=== PATIENT | female | born 1940 | race Caucasian/White ===

== ENCOUNTER → 2016-09-15 | Outpatient (CLI) | payer MEDICARE, OTHER ==
[2016-09-15 12:03] LABS: MEAN CORPUSCULAR HEMOGLOBIN 29.2 PG (26.0-34.0); MEAN CORPUSCULAR HGB CONC 34.5 g/dL (31.0-37.0); MEAN CORPUSCULAR VOLUME 85 FL (80-100); MEAN PLATELET VOLUME 9.7 FL (6.0-9.5); PLATELET COUNT 325 10^3uL (150-450); WHITE BLOOD COUNT 5.53 10^3uL (4.0-11.0)
[2016-09-15 12:12] LABS: BAND NEUTROPHILS % 0 % (0-6); EOSINOPHILS % 5 % (0-4); LYMPHOCYTES # 1.9 #; MONOCYTES # 0.5 #; MONOCYTES % 9 % (3-11); RBC MORPH NORMAL (NORMAL); SEGMENTED NEUTROPHILS % 51 % (51-67); TOTAL CELLS COUNTED 100
[2016-09-15 12:48] LABS: ANION GAP 13.6 MEQ/L (3-15); CALCULATED IONIZED CALCIUM 3.9 mg/dL (3.8-4.6); PHOSPHORUS 3.8 mg/dL (2.4-4.9); TOTAL PROTEIN 7.7 g/dL (6.4-8.5)
[2016-09-17 23:12] LABS: CA 27.29 C 12.3 U/mL (<=38.0)
== END ==
LOC: LAB 11:45
PROVIDERS: ATTEND Internal Medicine Hematology & Oncology
DX: C50.111 Malignant neoplasm of central portion of right female breast (principal); C50.411 Malignant neoplasm of upper-outer quadrant of right female breast
CPT/HCPCS: 36415; 80053; 82378; 83615; 83735; 84100; 85007; 85027; 86300

== ENCOUNTER 2016-09-17 05:53 | Emergency (ER) | payer MEDICARE, OTHER ==
[~2016-09-17] VITALS: Ht 167.6 cm; Wt 73.3 kg
[2016-09-17 06:50] VITALS: BP 134/71
== END 2016-09-17 06:46 | disposition home or self-care (01) ==
LOC: ED 05:54
DX: R25.1 Tremor, unspecified (principal); R11.2 Nausea with vomiting, unspecified; C50.919 Malignant neoplasm of unspecified site of unspecified female breast; Z79.899 Other long term (current) drug therapy
CPT/HCPCS: 99281; 99283

== ENCOUNTER → 2016-12-08 | Outpatient (CLI) | payer MEDICARE, OTHER ==
[~2016-12-08] MED LIST: ASPI-586 PO; CA C1TAB78 PO; DENO120V SQ; FULV250D2 IM; LEVO50TA6 PO; LYSI500T13 PO; MULT-642 PO
[2016-12-08 09:50] LABS: MEAN CORPUSCULAR HEMOGLOBIN 28.9 PG (26.0-34.0); MEAN CORPUSCULAR HGB CONC 32.7 g/dL (31.0-37.0); MEAN CORPUSCULAR VOLUME 88 FL (80-100); MEAN PLATELET VOLUME 9.7 FL (6.0-9.5); PLATELET COUNT 294 10^3uL (150-450); WHITE BLOOD COUNT 4.45 10^3uL (4.0-11.0)
[2016-12-08 10:15] LABS: BAND NEUTROPHILS % 0 % (0-6); EOSINOPHILS % 6 % (0-4); LYMPHOCYTES # 1.1 #; MONOCYTES # 0.1 #; MONOCYTES % 3 % (3-11); RBC MORPH NORMAL (NORMAL); SEGMENTED NEUTROPHILS % 65 % (51-67); TOTAL CELLS COUNTED 100
[2016-12-08 10:16] LABS: ANION GAP 15.9 MEQ/L (3-15); MAGNESIUM* 1.7 mg/dL (1.6-2.3); PHOSPHORUS 4.3 mg/dL (2.4-4.9); TOTAL PROTEIN 7.6 g/dL (6.4-8.5)
[2016-12-11 00:53] LABS: CA 27.29 C 17.1 U/mL (<=38.0)
== END ==
LOC: LAB 09:32
PROVIDERS: ATTEND Internal Medicine Hematology & Oncology
DX: C50.111 Malignant neoplasm of central portion of right female breast (principal)
CPT/HCPCS: 36415; 80053; 82378; 83615; 83735; 84100; 85007; 85027; 86300

== ENCOUNTER → 2016-12-10 | Outpatient (CLI) | payer MEDICARE, OTHER ==
--- NOTE | 2016-12-10 09:56 | Diagnostic Imaging Report ---
PROCEDURE: CT chest pelvis with and abdomen with and without contrast. TECHNIQUE: Multiple contiguous axial images were obtained through the chest, abdomen and pelvis after uneventful bolus administration of intravenous contrast. Precontrast acquisitions were acquired through the abdomen. DATE: December 10, 2016. COMPARISON: CT chest abdomen pelvis January 03, 2016. INDICATION: 76-year-old female, history of breast cancer. FINDINGS: There are peripheral areas of reticular nodularity in the right upper and middle lobe which are unchanged in overall appearance compared to January 03, 2016. There is somewhat of a nodular peripheral area that is unchanged since comparison exam as well measuring up to roughly 7 mm in size on axial image 27. There is no identified new or enlarging pulmonary nodule. There are predominantly linear opacities in the lower lobes that likely relate to atelectasis. There is mild pleural-parenchymal scarring in the right lung apex. There is no additional focal airspace consolidation. The previously noted nodule along the left-sided fissure is significantly less prominent since comparison exam. There is no pneumothorax. There is no pleural effusion. The central airways are patent. There is no identified central pulmonary embolus. The main pulmonary artery is normal in caliber. The heart is not enlarged. There is no pericardial effusion. There is a right hilar lymph node on axial image 25 measuring 8 mm in short axis which is unchanged since comparison exam. There is no identified hilar, mediastinal, or axillary lymph node which meets specific CT size criteria for adenopathy or is new or enlarged since the comparison exam. The liver is normal in size and contour. There is no identified liver lesion. The main, right, and left portal veins are patent. There is mild intrahepatic bile duct dilation. The gallbladder is unremarkable in appearance without CT apparent gallstones. There is no dilation of the common bile duct. The main pancreatic duct is not identified is abnormally dilated. The pancreatic parenchyma is grossly unremarkable. The spleen is normal in size. The adrenal glands are unremarkable. There are benign left parapelvic cysts. Additional evaluation of the renal parenchyma is unremarkable. The urinary collecting systems are not distended. There is no identified renal or ureteral stone. The urinary bladder is unremarkable in appearance. A small calcified lesions in the uterus as well as noncalcified uterine lesions most likely relating to multiple uterine leiomyomas. There is a moderate volume colonic stool. The intestinal tract is not distended. There is no free intraperitoneal air. There is no drainable fluid collection. There is no free pelvic fluid. There are atherosclerotic calcifications. There is no identified abnormally enlarged lymph node within the abdomen or pelvis which meets CT size criteria for adenopathy. There is chondrocalcinosis at the pubic symphysis. There are disc and facet degenerative changes of the lower lumbar spine. There is a sclerotic lesion involving the right proximal humerus involving the proximal humeral epiphysis extending at least to the level of the proximal metadiaphysis. The lesion is not entirely included in the [id number] and measures at least 3.7 cm in proximal to distal extent. There is some lesion appears grossly unchanged within its visualized portions comparing to January 03, 2016. The appearance is most consistent with a bone metastasis. No additional bone lesion is identified. 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 IMPRESSION: CT CHEST, ABDOMEN AND PELVIS. 1. Stable peripheral reticular nodularity in the right upper lobe and right middle lobe since December 2015. No new or enlarging pulmonary nodule. 2. Redemonstrated metastatic lesion involving the right proximal humerus which is not entirely visualized although within its visualized portions is very similar to January 03, 2016. No additional bone metastasis identified. 3. No evidence of metastatic disease within the abdomen or pelvis. 4. Multiple intrauterine leiomyomas. Dictated by: Dictated on workstation # [id number]
== END ==
LOC: RAD 07:57
PROVIDERS: ATTEND Internal Medicine Hematology & Oncology
DX: C50.111 Malignant neoplasm of central portion of right female breast (principal)
CPT/HCPCS: 71260; 74178; Q9967

== ENCOUNTER 2017-01-16 09:00 | Outpatient (RCR) | payer MEDICARE, OTHER ==
--- NOTE | 2017-01-06 15:07 | PT/OT/ST INITIAL EVALUATION ---
Department of Health and Human Services Form Approved [facility] Care Financing Administration OMB No. [id number] PLAN OF CARE/ASSESSMENT FOR OUTPATIENT REHABILITATION (Complete for Initial Claims Only) 1. PATIENT'S NAME Genevieve Nevarez 2. ACC # [id number] [facility]. [id number] 4. PROVIDER NO. [id number] 5. TYPE: PT 6. PRIOR HOSPITALIZATION NA 7. PRIMARY DX Right upper extremity lymphedema. 8. SECONDARY DX 9. ONSET DATE Worsening in approximately the last month. 10. REFERRAL DATE NA 11. SOC. DATE 12/23/2016 12. TIME OF EVAL 09:14 a.m. 12. REFERRING PHYSICIAN Dr. Trent Aranda 13. CHARGES/UNITS Na 14. G CODES [id number] 15. PRIOR LEVEL OF FUNCTION; PERTINENT HISTORY (Prior therapy results, reason for referral.) S: Prior to therapy the patient did consent to today's evaluation and treatment. The patient is a 76-year-old female referred to physical therapy by Dr. Aranda to address right upper extremity lymphedema. Personal health rating: The patient does rate her overall and general health as good. Description/mechanism of injury: The patient states, in 1989, she was diagnosed with breast cancer with lymph node involvement where she had a radical mastectomy performed. The patient then had a recurrence of cancer around 2005 where she underwent radiation and developed lymphedema following this. Approximately 3 years ago the patient had an additional reoccurrence of cancer, which significantly worsened the lymphedema in her right upper extremity due to a lesion that was present under her arm that was cancerous in nature, as well as scar tissue from the radiation. The patient states she has been compliant with wearing a custom garment since this time, however, approximately 1 month ago she was beginning outdoor activities had significant increase in activity and noticed that the edema has worsened with a flare of her lymphedema. The patient does have a lympha-press at home which she uses daily for approximately 30 minutes with a pressure of 60 to 70 mmHg, which does help somewhat, but does not resolve the condition. Prior level of function: Include the patient being able to self-manage with her garments including a costume glove and a costume arm sleeve. Current level of function: Currently eh patient is unable to self-manage due to increased activity. The patient additionally is noticing that her clothing is not fitting correctly due to her arm being too large to fit into garments. Therapy History: Includes comprehensive lymphedema treatment in the past with good results. Obstacles to delivery of care: Includes scar tissue in the right axilla. Pain level: The patient denies reports of pain due to this condition. Diagnostic tests: Include scans, which show no significant change in the tumor or condition. Past medical history: Includes breast cancer. None other are reported by the patient. Current medications: Includes Faslodex, which is an estrogen suppressor and a thyroid medication. Patient's Goal: The patient's goal for physical therapy is to decrease the arm size and to get a new garment to be able to self-manage this condition. 16. INITIAL ASSESSMENT/SAFETY PRECAUTIONS/MEDICAL COMPLICATIONS (Level of function at start of care. Be specific, use objective measures, list problems.) O: APPEARANCE, OBSERVATION AND GAIT: The patient presents as an older female in apparently healthy condition. She does present at physical therapy with a visibly larger right upper extremity as compared to the left. The patient does have increased heat present throughout the right upper extremity, however, no signs or symptoms of infection. The patient has no pitting edema present, but she does have induration and bogginess palpated in the forearm region. CIRCUMFERENTIAL MEASUREMENTS: Circumferential measures were taken throughout the right upper extremity. These measurements on this day are 251.2 cm. The measurements on the left were 215.2 cm for the right upper extremity measuring 36 cm larger than the left once again with induration present in the forearm region. TODAY'S TREATMENT: Following the initial evaluation manual therapy techniques including lymph node activation, manual lymphatic drainage and multilayer compression bandaging was performed to the right upper extremity. The patient's edema did respond well to manual drainage techniques and did have decreased induration and visible decrease in measurements following today's treatment. 17. INITIAL POC: (Specify procedures, modalities, short and alf goals) A: The patient presents to physical therapy with the diagnosis of right upper extremity lymphedema with resultant increased circumferential measures of the right upper extremity, decreased right upper extremity functional use and decreased effectiveness of the costume garment. PROGNOSIS: This patient does have a good prognosis with regular therapy attendance and compliance with home exercise program. This patient is expected to benefit from physical therapy services in order to have decreased circumferential measures to be able to be fitted with a new garment to control this condition. INFORMED CONSENT: The diagnosis, prognosis, treatment plan, risks and expected outcomes were discussed with the patient and the patient did agree to today's established plan of care. SHORT TERM GOALS: 1. The patient to be compliant with wearing multilayer compression bandaging after each session. 2. The patient with no induration in 2 weeks to reflect increased lymph flow. 3. The patient with right upper extremity circumferential measures decreased at least 15 cm in 4 weeks to allow measuring for a new garment. 4. The patient will have a new garment to self-manage this condition in 6 weeks for long term care phlebotomist management of this condition. P: Plan to treat the patient 3 times per week for 6 weeks in order to address right upper extremity lymphedema. Treatment to include modalities including a vasopneumatic device, manual therapy techniques including lymph node activation, manual lymphatic drainage, and multilayer compression bandaging for comprehensive lymphedema management, as well as patient education and home exercise program to be advanced as warranted. 18. FREQUENCY 3 times per week 19. DURATION 6 weeks 20. FUNCTIONAL LEVEL (End of claim period) 21. PHYSICIAN SIGNATURE ? ON FILE OR ENTER HERE: 22. DATE: I certify the need for these services furnished under this plan of care and if for partial hospitalization. 23. CERTIFICATION FROM THROUGH [facility]-700
== END 2017-01-19 09:56 | disposition home or self-care (01) ==
LOC: PT 09:00
PROVIDERS: ATTEND Internal Medicine Hematology & Oncology
DX: R59.9 Enlarged lymph nodes, unspecified (principal); I89.0 Lymphedema, not elsewhere classified
CPT/HCPCS: 97016; 97140; 97161; G8984; G8985